=== PATIENT | male | born 1970 | race Caucasian/White ===

== ENCOUNTER 2016-12-24 21:44 | Inpatient (IN) | payer BC ==
[2016-12-24] MEDS ORDERED: SODIUM CHLORIDE 0.9% 1,000 ML IV STA (22:40)
--- NOTE | 2016-12-24 22:45 | ED ---
General Adult HPI - General Chief complaint: Arrhythmia/Palpitations Stated complaint: racing heart/shaky Time Seen by Provider: 12/24/16 22:33 Source: patient, RN notes reviewed Mode of arrival: ambulatory Limitations: no limitations - History of Present Illness Initial comments: 46-year-old male presents to the emergency department with a chief complaint of heart racing. Patient states he felt like his heart was racing today. Patient states he was just beating so fast for a couple minutes at home and then afterwards it stopping the past he just felt terribly drained. Patient states he has had history of TIA in the past and he states that in the last month or so he's had on-and-off changes in vision on and off episodes where his speech is abnormal that he has not had those in about a week or so. Patient states that this time he just does not feel anything abnormal that he was concerned due to his symptoms without that he should be seen.Patient denies any recent fever, chills, shortness of breath, chest pain, back pain, abdominal pain, nausea vomiting, numbness or tingling, dysuria or hematuria, constipation or diarrhea, headaches or visual changes, or any other current symptoms. - Related Data Home Medications Medication Instructions Recorded Confirmed No Known Home Medications [No 12/24/16 12/24/16 Known Home Medications] Allergies Allergy/AdvReac Type Severity Reaction Status Date / Time ceftriaxone [From Rocephin] Allergy Rash/Hives Verified 12/24/16 23:08 Review of Systems ROS Statement: Those systems with pertinent positive or pertinent negative responses have been documented in the HPI. ROS Other: All systems not noted in ROS Statement are negative. Past Medical History Past Medical History: CVA/TIA History of Any Multi-Drug Resistant Organisms: MRSA MDRO Source:: right leg Past Surgical History: Adenoidectomy, Orthopedic Surgery Additional Past Surgical History / Comment(s): Right ankle Past Psychological History: No Psychological Hx Reported Smoking Status: Current every day smoker Past Alcohol Use History: Occasional Past Drug Use History: None Reported General Exam Limitations: no limitations General appearance: alert, in no apparent distress Head exam: Present: atraumatic, normocephalic, normal inspection Eye exam: Present: normal appearance, PERRL, EOMI. Absent: scleral icterus, conjunctival injection, periorbital swelling ENT exam: Present: normal exam, mucous membranes moist Neck exam: Present: normal inspection. Absent: tenderness, meningismus, lymphadenopathy Respiratory exam: Present: normal lung sounds bilaterally. Absent: respiratory distress, wheezes, rales, rhonchi, stridor Cardiovascular Exam: Present: regular rate, normal rhythm, normal heart sounds. Absent: systolic murmur, diastolic murmur, rubs, gallop, clicks Extremities exam: Present: normal inspection, full ROM, normal capillary refill. Absent: tenderness, pedal edema, joint swelling, calf tenderness Back exam: Present: normal inspection Neurological exam: Present: alert, oriented X3, CN II-XII intact, reflexes normal. Absent: motor sensory deficit Psychiatric exam: Present: normal affect, normal mood Skin exam: Present: warm, dry, intact, normal color. Absent: rash Course Vital Signs 12/24/16 12/24/16 12/24/16 21:52 22:41 23:47 Temperature 97.9 F 97.3 F L Pulse Rate 90 69 66 Respiratory 18 16 18 Rate Blood Pressure 140/88 133/86 123/77 O2 Sat by Pulse 98 97 97 Oximetry EKG Findings - EKG Comments: EKG Findings:: normal sinus rhythm 73 bpm, normal axis, no atopy, no S-T depressions or elevations, Medical Decision Making - Medical Decision Making 46-year-old male presents to the emergency department the chief complaint of racing heart earlier today. This time patient's EKG shows normal sinus rhythm. Patient also admits to episodes of slurred speech abnormal speech on and off over the last month or so. This time lab work is reviewed. There is a mildly elevated troponin patient does have this history of these palpitations at home. I assembled the patient for cardiac rule out. Will be started heparin given aspirin. Patient is in agreement plan all questions have been answered. - Lab Data Result diagrams: 12/24/16 22:52 12/24/16 22:52 Lab Results 12/24/16 12/24/16 12/24/16 Range/Units 22:52 22:52 22:52 WBC 8.1 (3.8-10.6) k/uL RBC 4.53 (4.30-5.90) m/uL Hgb 15.1 (13.0-17.5) gm/dL Hct 44.0 (39.0-53.0) % MCV 97.2 (80.0-100.0) fL MCH 33.4 (25.0-35.0) pg MCHC 34.3 (31.0-37.0) g/dL RDW 13.3 (11.5-15.5) % Plt Count 235 (150-450) k/uL Neutrophils % 57 % Lymphocytes % 34 % Monocytes % 5 % Eosinophils % 3 % Basophils % 0 % Neutrophils # 4.6 (1.3-7.7) k/uL Lymphocytes # 2.8 (1.0-4.8) k/uL Monocytes # 0.4 (0-1.0) k/uL Eosinophils # 0.2 (0-0.7) k/uL Basophils # 0.0 (0-0.2) k/uL PT (9.0-12.0) sec INR (<1.2) APTT (22.0-30.0) sec Sodium 141 (137-145) mmol/L Potassium 4.0 (3.5-5.1) mmol/L Chloride 108 H (98-107) mmol/L Carbon Dioxide 21 L (22-30) mmol/L Anion Gap 12 mmol/L BUN 15 (9-20) mg/dL Creatinine 1.00 (0.66-1.25) mg/dL Est GFR (MDRD) Af Amer >60 (>60 ml/min/1.73 sqM) Est GFR (MDRD) Non-Af >60 (>60 ml/min/1.73 sqM) Glucose 93 (74-99) mg/dL Calcium 9.3 (8.4-10.2) mg/dL Magnesium 2.2 (1.6-2.3) mg/dL Total Bilirubin 0.4 (0.2-1.3) mg/dL AST 27 (17-59) U/L ALT 42 (21-72) U/L Alkaline Phosphatase 72 (38-126) U/L Total Creatine Kinase 173 H (55-170) U/L CK-MB (CK-2) 0.7 (0.0-2.4) ng/mL CK-MB (CK-2) Rel Index 0.4 Troponin I 0.083 H* (0.000-0.034) ng/mL Total Protein 7.2 (6.3-8.2) g/dL Albumin 4.5 (3.5-5.0) g/dL Urine Color Urine Appearance (Clear) Urine pH (5.0-8.0) Ur Specific Lam[place] (1.001-1.035) Urine Protein (Negative) Urine Glucose (UA) (Negative) Urine Ketones (Negative) Urine Blood (Negative) Urine Nitrite (Negative) Urine Bilirubin (Negative) Urine Urobilinogen (<2.0) mg/dL Ur Leukocyte Esterase (Negative) 12/24/16 12/24/16 Range/Units 22:52 22:52 WBC (3.8-10.6) k/uL RBC (4.30-5.90) m/uL Hgb (13.0-17.5) gm/dL Hct (39.0-53.0) % MCV (80.0-100.0) fL MCH (25.0-35.0) pg MCHC (31.0-37.0) g/dL RDW (11.5-15.5) % Plt Count (150-450) k/uL Neutrophils % % Lymphocytes % % Monocytes % % Eosinophils % % Basophils % % Neutrophils # (1.3-7.7) k/uL Lymphocytes # (1.0-4.8) k/uL Monocytes # (0-1.0) k/uL Eosinophils # (0-0.7) k/uL Basophils # (0-0.2) k/uL PT 9.5 (9.0-12.0) sec INR 0.9 (<1.2) APTT 23.7 (22.0-30.0) sec Sodium (137-145) mmol/L Potassium (3.5-5.1) mmol/L Chloride (98-107) mmol/L Carbon Dioxide (22-30) mmol/L Anion Gap mmol/L BUN (9-20) mg/dL Creatinine (0.66-1.25) mg/dL Est GFR (MDRD) Af Amer (>60 ml/min/1.73 sqM) Est GFR (MDRD) Non-Af (>60 ml/min/1.73 sqM) Glucose (74-99) mg/dL Calcium (8.4-10.2) mg/dL Magnesium (1.6-2.3) mg/dL Total Bilirubin (0.2-1.3) mg/dL AST (17-59) U/L ALT (21-72) U/L Alkaline Phosphatase (38-126) U/L Total Creatine Kinase (55-170) U/L CK-MB (CK-2) (0.0-2.4) ng/mL CK-MB (CK-2) Rel Index Troponin I (0.000-0.034) ng/mL Total Protein (6.3-8.2) g/dL Albumin (3.5-5.0) g/dL Urine Color Light Yellow Urine Appearance Clear (Clear) Urine pH 5.5 (5.0-8.0) Ur Specific [place] 1.010 (1.001-1.035) Urine Protein Negative (Negative) Urine Glucose (UA) Negative (Negative) Urine Ketones Negative (Negative) Urine Blood Negative (Negative) Urine Nitrite Negative (Negative) Urine Bilirubin Negative (Negative) Urine Urobilinogen <2.0 (<2.0) mg/dL Ur Leukocyte Esterase Negative (Negative) Disposition Clinical Impression: Heart palpitations, Unstable angina Disposition: ADMITTED IP TO THIS [facility] Condition: Stable Referrals: None,Stated [Primary Care Provider] - 1-2 days Time of Disposition: 00:12 Decision Date: 12/25/16 Decision Time: 00:12
[2016-12-24 23:05] LABS: Appearance,Urine Clear (Clear); Basophils % (A) 0 %; Bilirubin,Urine Negative (Negative); CH 34.2; CHCM 35.3; Eosinophils # (A) 0.2 k/uL (0-0.7); Eosinophils % (A) 3 %; Glucose,Urine (UA) Negative (Negative); HDW 2.22; HGB 15.1 gm/dL (13.0-17.5); Ketones,Urine Negative (Negative); Leukocyte Esterase,Urine Negative (Negative); Luc # (Auto) 0.08; Luc % (Auto) 1; Lymphocytes # (A) 2.8 k/uL (1.0-4.8); Lymphocytes % (A) 34 %; MCH 33.4 pg (25.0-35.0); MCHC 34.3 g/dL (31.0-37.0); MCV 97.2 fL (80.0-100.0); Mean Platelet Volume 6.6; Monocytes # (A) 0.4 k/uL (0-1.0); Monocytes % (A) 5 %; Neutrophils # (A) 4.6 k/uL (1.3-7.7); Neutrophils % (A) 57 %; Nitrite,Urine Negative (Negative); PH, Urine 5.5 (5.0-8.0); Protein,Urine Negative (Negative); RBC 4.53 m/uL (4.30-5.90); RDW 13.3 % (11.5-15.5); UA Billing (MACRO vs. MICRO) CHEM; Urobilinogen,Urine <2.0 mg/dL (<2.0); WBC 8.1 k/uL (3.8-10.6); WBC (Perox) 7.87
[2016-12-24 23:13] LABS: ALT 42 U/L (21-72); AST 27 U/L (17-59); Alkaline Phosphatase 72 U/L (38-126); Anion Gap 12 mmol/L; Blood Urea Nitrogen 15 mg/dL (9-20); Calcium 9.3 mg/dL (8.4-10.2); Carbon Dioxide 21 mmol/L (22-30); Chloride 108 mmol/L (98-107); Glucose 93 mg/dL (74-99); Magnesium 2.2 mg/dL (1.6-2.3); Non-African American GFR(MDRD) >60 (>60 ml/min/1.73 sqM); Sodium 141 mmol/L (137-145); Total Bilirubin 0.4 mg/dL (0.2-1.3); Total Protein 7.2 g/dL (6.3-8.2)
[2016-12-24 23:15] LABS: INR 0.9 (<1.2); Partial Thromboplastin Time 23.7 sec (22.0-30.0); Prothrombin Time 9.5 sec (9.0-12.0)
[2016-12-24 23:40] LABS: Creatine Kinase MB 0.7 ng/mL (0.0-2.4)
--- NOTE | 2016-12-24 23:41 | XR ---
EXAM: XR Chest, 2 Views CLINICAL HISTORY: Reason: Chest Pain TECHNIQUE: Frontal and lateral views of the chest. COMPARISON: No relevant prior studies available. FINDINGS: Lungs: Mild perihilar prominence. No consolidation. Pleural space: Unremarkable. No pneumothorax. Heart: Unremarkable. Mediastinum: Unremarkable. Bones/joints: Unremarkable. IMPRESSION: No acute cardiopulmonary disease.
[2016-12-24 23:44] LABS: Troponin I 0.083 ng/mL (0.000-0.034)
--- NOTE | 2016-12-24 23:51 | CT ---
EXAM: CT Head Without Intravenous Contrast CLINICAL HISTORY: Reason: Pain TECHNIQUE: Axial computed tomography images of the head/brain without intravenous contrast. CTDI is 57.4 mGy and DLP is 1029.9 mGy-cm. This CT exam was performed using one or more of the following dose reduction techniques: automated exposure control, adjustment of the mA and/or kV according to patient size, and/or use of iterative reconstruction technique. COMPARISON: No relevant prior studies available. FINDINGS: Brain: No hemorrhage. No acute cortical infarct. No mass effect or midline shift. Ventricles: Unremarkable. Bones/joints: No acute fracture. Soft tissues: Unremarkable. Sinuses: Unremarkable as visualized. Mastoid air cells: Unremarkable as visualized. IMPRESSION: No acute intracranial process.
[2016-12-24] MEDS ORDERED: ASPIRIN 81 MG CHEW PO STA (23:54)
[2016-12-25] MEDS ORDERED: ONDANSETRON 4 MG/2 ML VIAL IVP PRN (00:12)
[2016-12-25] MEDS ORDERED: NALOXONE 0.4 MG/ML 1 ML VIAL IV PRN (00:12)
[2016-12-25] MEDS ORDERED: HEPARIN SODIUM,PORCINE 5,000 UNIT/ML 1 ML VIAL IV PRN (00:14)
[2016-12-25] MEDS ORDERED: HEPARIN SODIUM,PORCINE 5,000 UNIT/ML 1 ML VIAL IV ONE (00:14)
[2016-12-25] MEDS: SODIUM CHLORIDE 0.9% 1,000 ML IV SCH ×2 (00:27→14:36)
[2016-12-25] MEDS: HEPARIN SODIUM,PORCINE/D5W PMX 25,000 UNIT in DEXTROSE/WATER 1 500ML.BAG IV SCH (00:28)
[2016-12-25 00:51] LABS: Cholesterol 186 mg/dL (<200); HDL Cholesterol 29 mg/dL (40-60)
[2016-12-25 02:09] VITALS: BMI 26.8
[2016-12-25 06:35] LABS: Creatine Kinase MB 0.5 ng/mL (0.0-2.4)
[2016-12-25 06:36] LABS: Troponin I 0.088 ng/mL (0.000-0.034)
--- NOTE | 2016-12-25 09:41 | P.CRDCN ---
History of Present Illness Consult date: 12/25/16 Requesting physician: Ene Chauhan Reason for Consult (text): Palpitations Chief complaint: Palpitations History of present illness: This is a pleasant 46-year-old gentleman who works at the [employer], he has no prior documented history of hypertension, no diabetes, no hyperlipidemia , he does state that he has high triglycerides, he does smoke cigarettes, rarely drinks alcohol, he does drink energy drinks on a daily basis, and has history of prior TIA. He presents to the hospital with symptoms of feeling his heart racing fast, he states that it lasted for a couple of minutes, once it stopped to normal he states that he felt drained completely exhausted. Patient also states that for the past month or so he has been having recurrent episodes of visual disturbance as well as difficulty speaking, at times slurring of speech at times more expressive aphasia. Overall the patient presented to the hospital because he just did not feel well after this episode of heart racing fast. EKG performed on presentation here showed a normal sinus rhythm with nonspecific ST-T wave changes. Repeat EKG shows normal sinus rhythm with nonspecific ST-T wave changes. Blood pressure on arrival here 140/80 with a heart rate in the 90s, 98% on room air. CBC normal. Potassium 4.0, BUN 15, creatinine 1.0. Initial troponin on presentation here 0.08, 0.08. CAT scan of the brain was performed which did not reveal any acute intracranial process. Chest x-ray did not reveal any acute cardiopulmonary disease. At the time of my examination this morning, patient feels exhausted and drained, denies any palpitations, no chest discomfort, no shortness of breath. No symptoms of blurring of vision or difficulty speaking. He is currently on an IV heparin drip. Past Medical History Past Medical History: CVA/TIA History of Any Multi-Drug Resistant Organisms: MRSA Date of last positivie culture/infection: unknown MDRO Source:: right leg Past Surgical History: Adenoidectomy, Orthopedic Surgery Additional Past Surgical History / Comment(s): Right ankle Past Psychological History: No Psychological Hx Reported Smoking Status: Current every day smoker Past Alcohol Use History: Occasional Past Drug Use History: None Reported - Past Family History Mother History Unknown: Yes Medications and Allergies Home Medications Medication Instructions Recorded Confirmed Type No Known Home Medications [No 12/24/16 12/24/16 History Known Home Medications] Allergies Allergy/AdvReac Type Severity Reaction Status Date / Time ceftriaxone [From Rocephin] Allergy Rash/Hives Verified 12/24/16 23:08 Physical Exam Vitals: Vital Signs Temp Pulse Pulse Resp BP BP Pulse Ox 12/25/16 04:00 97.2 F L 67 16 100/59 100 12/25/16 01:58 96.7 F L 75 16 113/72 97 12/25/16 00:17 60 18 131/87 96 12/24/16 23:47 97.3 F L 66 18 123/77 97 12/24/16 22:41 69 16 133/86 97 12/24/16 21:52 97.9 F 90 18 140/88 98 Intake and Output 12/24/16 12/25/16 12/25/16 22:59 06:59 14:59 Intake Total 800 Balance 800 Intake: IV 800 Heparin Sodium,Porcine/ 160 D5w Pmx 25,000 unit In Dextrose/Water 1 500ml. bag @ 9.8 UNITS/KG/HR 20 mls/hr IV .Q24H IRAIDA Rx#: [id number] Sodium Chloride 0.9% 1, 640 000 ml @ 80 mls/hr IV . [id number] IRAIDA Rx#:[id number] Other: Voiding Method Toilet # Voids 1 Weight 102.058 kg 102.6 kg PHYSICAL EXAMINATION: HEENT: Head is atraumatic, normocephalic. Pupils equal, round. Neck is supple. There is no elevated jugular venous pressure. HEART EXAMINATION: Heart S1, S2 normal. No murmur or gallop heard. CHEST EXAMINATION: Lungs are clear to auscultation and precussion. No chest wall tenderness is noted on palpation or with deep breathing. ABDOMEN: Soft, nontender. Bowel sounds are heard. No organomegaly noted. EXTREMITIES: 2+ peripheral pulses with no evidence of peripheral edema and no calf tenderness noted. NEUROLOGIC patient is awake, alert and oriented -3. . Results 12/24/16 22:52 12/24/16 22:52 Cardiac Enzymes 12/24/16 12/24/16 12/25/16 Range/Units 22:52 22:52 05:20 AST 27 (17-59) U/L CK-MB (CK-2) 0.7 0.5 (0.0-2.4) ng/mL Troponin I 0.083 H* 0.088 H* (0.000-0.034) ng/mL Coagulation 12/24/16 12/25/16 Range/Units 22:52 05:20 PT 9.5 (9.0-12.0) sec APTT 23.7 31.8 H (22.0-30.0) sec Lipids 12/24/16 Range/Units 22:52 Triglycerides 410 H (<150) mg/dL Cholesterol 186 (<200) mg/dL HDL Cholesterol 29 L (40-60) mg/dL CBC 12/24/16 Range/Units 22:52 WBC 8.1 (3.8-10.6) k/uL RBC 4.53 (4.30-5.90) m/uL Hgb 15.1 (13.0-17.5) gm/dL Hct 44.0 (39.0-53.0) % Plt Count 235 (150-450) k/uL Comprehensive Metabolic Panel 12/24/16 Range/Units 22:52 Sodium 141 (137-145) mmol/L Potassium 4.0 (3.5-5.1) mmol/L Chloride 108 H (98-107) mmol/L Carbon Dioxide 21 L (22-30) mmol/L BUN 15 (9-20) mg/dL Creatinine 1.00 (0.66-1.25) mg/dL Glucose 93 (74-99) mg/dL Calcium 9.3 (8.4-10.2) mg/dL AST 27 (17-59) U/L ALT 42 (21-72) U/L Alkaline Phosphatase 72 (38-126) U/L Total Protein 7.2 (6.3-8.2) g/dL Albumin 4.5 (3.5-5.0) g/dL Current Medications Generic Name Dose Route Start Last Admin Trade Name Freq PRN Reason Stop Dose Admin Aspirin 325 mg 12/26/16 09:00 Aspirin PO DAILY IRAIDA Heparin Sodium (Porcine) 0 unit 12/25/16 00:14 Heparin IV PER PROTOCOL PRN Low PTT Protocol Heparin Sodium/Dextrose 25,000 500 mls @ 20 mls/hr 12/25/16 00:15 12/25/16 00 :28 unit/ IV Solution IV 9.79 units/kg/hr .Q24H IRAIDA 20 mls/hr Protocol Administration 9.8 UNITS/KG/HR Sodium Chloride 1,000 mls @ 80 mls/hr 12/25/16 00:15 12/25/16 00:27 Saline 0.9% IV 80 mls/hr .[id number] IRAIDA Administration Naloxone HCl 0.2 mg 12/25/16 00:12 Narcan IV Q2M PRN Opioid Reversal Ondansetron HCl 4 mg 12/25/16 00:12 Zofran IVP Q8HR PRN Nausea And Vomiting Intake and Output 12/24/16 12/25/16 12/25/16 22:59 06:59 14:59 Intake Total 800 Balance 800 Intake: IV 800 Heparin Sodium,Porcine/ 160 D5w Pmx 25,000 unit In Dextrose/Water 1 500ml. bag @ 9.8 UNITS/KG/HR 20 mls/hr IV .Q24H IRAIDA Rx#: [id number] Sodium Chloride 0.9% 1, 640 000 ml @ 80 mls/hr IV . [id number] IRAIDA Rx#:[id number] Other: Voiding Method Toilet # Voids 1 Weight 102.058 kg 102.6 kg 12/24/16 22:52 12/24/16 22:52 EKG Interpretations (text) EKG shows a normal sinus rhythm with nonspecific ST-T wave changes. Assessment and Plan Plan: Assessment and plan #1 symptoms of palpitations and heart racing. Associated symptoms of exhaustion. Troponin 0.08, 0.08. EKG shows normal sinus rhythm with nonspecific ST-T wave changes no arrhythmias documented. #2 history of TIA, patient has been also experiencing recent symptoms of expressive aphasia, slurring of speech and visual disturbance. #3 nicotine dependence #4 use of energy drinks #5 high triglycerides Plan We will obtain an echocardiogram with Doppler study. We will also obtain a third troponin, and d-dimer level. Continue IV heparin at this time. Obtain fasting lipid profile. Other recommendations to follow. DNP note has been reviewed, I agree with a documented findings and plan of care. Patient was seen and examined.
[2016-12-25 11:06] LABS: Creatine Kinase MB 0.5 ng/mL (0.0-2.4)
[2016-12-25] MEDS ORDERED: NITROGLYCERIN SL TABS 0.4 MG TAB SUBLINGUAL PRN (11:07)
[2016-12-25] MEDS ORDERED: SODIUM CHLORIDE 0.9% 1,000 ML in EMPTY BAG 1 BAG IV ONE (11:07)
[2016-12-25] MEDS ORDERED: ATORVASTATIN 80 MG TAB PO STA (11:07)
[2016-12-25] MEDS ORDERED: ALPRAZolam 0.5 MG TAB PO PRN (11:07)
[2016-12-25] MEDS ORDERED: ASPIRIN 325 MG TAB PO STA (11:07)
[2016-12-25] MEDS ORDERED: ALPRAZolam 0.25 MG TAB PO PRN (11:07)
[2016-12-25 11:09] LABS: Troponin I 0.082 ng/mL (0.000-0.034)
[2016-12-25] MEDS: METOPROLOL TARTRATE 25 MG TAB PO SCH ×2 (11:25→20:03)
[2016-12-25] MEDS ORDERED: IV FLUID CONTINUATION 1,000 ML IV ONE (13:28)
[2016-12-25] MEDS ORDERED: LIDOCAINE 2% INJ 20 MG/ML (20 ML MDV) ONE (13:40)
[2016-12-25] MEDS ORDERED: VERAPAMIL 2.5 MG/ML 2 ML AMP ONE (13:40)
[2016-12-25] MEDS ORDERED: MIDAZOLAM 2 MG/2 ML VIAL ONE (13:41)
[2016-12-25] MEDS ORDERED: MIDAZOLAM 2 MG/2 ML VIAL IV ONE (13:46)
[2016-12-25] MEDS ORDERED: LIDOCAINE 2% INJ 20 MG/ML SQ ONE (13:48)
[2016-12-25] MEDS: VERAPAMIL SYRINGE (5 MG/10 ML) INTRAARTER ONE ×2 (13:49→14:03)
[2016-12-25] MEDS ORDERED: HEPARIN SODIUM 1,000 UN/ML (10ML VL) ONE (13:49)
[2016-12-25] MEDS ORDERED: HYDROmorphone 2 MG/ML 1 ML SYRINGE ONE (13:55)
[2016-12-25] MEDS ORDERED: HYDROmorphone 2 MG/ML 1 ML SYRINGE IV ONE ×2 (13:56)
[2016-12-25] MEDS ORDERED: IOHEXOL 350 MG/ML 125ML BOTTLE INJ ONE (14:02)
[2016-12-25] MEDS ORDERED: RX INFO: IV CONTRAST WAS GIVEN 1 EACH MISC MISCELLANE PRN (14:11)
[2016-12-25] MEDS ORDERED: SODIUM CHLORIDE 0.9% 1,000 ML IV SCH (14:15)
[2016-12-25] MEDS ORDERED: ACETAMINOPHEN TAB 325 MG TAB PO PRN (15:35)
[2016-12-25] MEDS ORDERED: ASPIRIN-ACET-CAFF 250-250-65MG 1 EACH TAB PO PRN (16:47)
--- NOTE | 2016-12-25 19:41 | ECHOF ---
Referral Reason:abn trop MEASUREMENTS -------- HEIGHT: 195.6 cm WEIGHT: 102.5 kg BP: 100/59 RVIDd: 2.3 cm (< 3.3) IVSd: 0.9 cm (0.6 - 1.1) LVIDd: 5.4 cm (3.9 - 5.3) LVPWd: 1.0 cm (0.6 - 1.1) IVSs: 1.2 cm LVIDs: 4.0 cm LVPWs: 1.3 cm LAESV Index (A-L): 13.86 ml/m Ao Diam: 4.0 cm (2.0 - 3.7) AV Cusp: 2.3 cm (1.5 - 2.6) LA Diam: 2.8 cm (2.7 - 3.8) MV EXCURSION: 27.007 mm (> 18.000) MV EF SLOPE: 150 mm/s (70 - 150) EPSS: 0.2 cm MV E Blair: 0.86 m/s MV DecT: 198 ms MV A Blair: 0.58 m/s MV E/A Ratio: 1.48 RAP: 5.00 mmHg RVSP: 23.14 mmHg FINDINGS -------- Sinus rhythm. This was a technically adequate study. Overall left ventricular systolic function is low-normal with, an EF between 50 - 55 %. The right ventricle is normal in size and function. Normal LA size by volume 22+/-6 ml/m2. The right atrium is normal in size. The aortic valve is trileaflet, and appears structurally normal. No aortic stenosis or regurgitation. The mitral valve is normal. There is trace mitral regurgitation. No regurgitation noted There is no evidence of pulmonary hypertension. The right ventricular systolic pressure, as measured by Doppler, is 23.14mmHg. The pulmonic valve is normal. The aortic root size is normal. Normal inferior vena cava with normal inspiratory collapse consistent with estimated right atrial pressure of 5 mmHg. The pericardium is normal. There is no pericardial effusion. CONCLUSIONS -------- 1. Sinus rhythm. 2. The aortic root size is normal. 3. There is no pericardial effusion. 4. This was a technically adequate study. 5. Overall left ventricular systolic function is low-normal with, an EF between 50 - 55 %. 6. Normal LA size by volume 22+/-6 ml/m2. 7. The aortic valve is trileaflet, and appears structurally normal. No aortic stenosis or regurgitation. 8. There is trace mitral regurgitation. 9. No regurgitation noted 10. There is no evidence of pulmonary hypertension. 11. The right ventricular systolic pressure, as measured by Doppler, is 23.14mmHg. [employer]IV[employer] ENGINEER: Lb Tai RDCS
[2016-12-25 20:20] VITALS: RESP 16
[2016-12-26] MEDS: HEPARIN SODIUM,PORCINE/D5W PMX 25,000 UNIT in DEXTROSE/WATER 1 500ML.BAG IV SCH (05:16)
[2016-12-26 06:12] LABS: Basophils % (A) 1 %; HDW 2.22; Lymphocytes % (A) 27 %
[2016-12-26 06:19] LABS: CH 34.1; CHCM 34.1; Eosinophils # (A) 0.2 k/uL (0-0.7); Eosinophils % (A) 3 %; HCT 44.8 % (39.0-53.0); HGB 14.6 gm/dL (13.0-17.5); Luc % (Auto) 1; Lymphocytes # (A) 1.9 k/uL (1.0-4.8); MCH 32.7 pg (25.0-35.0); MCHC 32.6 g/dL (31.0-37.0); MCV 100.4 fL (80.0-100.0); Mean Platelet Volume 6.6; Monocytes # (A) 0.4 k/uL (0-1.0); Monocytes % (A) 6 %; Neutrophils # (A) 4.4 k/uL (1.3-7.7); Neutrophils % (A) 63 %; RBC 4.46 m/uL (4.30-5.90); RDW 13.1 % (11.5-15.5); WBC 7.1 k/uL (3.8-10.6); WBC (Perox) 7.35
[2016-12-26 06:22] LABS: INR 0.9 (<1.2); Prothrombin Time 9.6 sec (9.0-12.0)
[2016-12-26 06:24] LABS: Anion Gap 8 mmol/L; Blood Urea Nitrogen 10 mg/dL (9-20); Carbon Dioxide 26 mmol/L (22-30); Chloride 109 mmol/L (98-107); Glucose 111 mg/dL (74-99); Non-African American GFR(MDRD) >60 (>60 ml/min/1.73 sqM); Potassium 4.5 mmol/L (3.5-5.1); Sodium 143 mmol/L (137-145)
[2016-12-26] MEDS: SODIUM CHLORIDE 0.9% 1,000 ML IV SCH (08:43)
[2016-12-26] MEDS: METOPROLOL TARTRATE 25 MG TAB PO SCH (08:44)
[2016-12-26] MEDS ORDERED: ASPIRIN 325 MG TAB PO SCH (09:00)
[2016-12-26 11:54] VITALS: BP 130/80; PULSE 70; TEMP 98.6
[2016-12-26] MEDS ORDERED: ASPIRIN 81 MG CHEW PO SCH (12:14)
--- NOTE | 2016-12-26 13:25 | HP ---
DATE OF SERVICE: 12/25/2016 CHIEF COMPLAINTS: Palpitations. HISTORY OF PRESENT ILLNESS: This 46-year-old gentleman with past medical history of CVA, TIA, history of MRSA, history of adenoidectomy being followed by no primary care physician in the outpatient setting was admitted with complaints of palpitations. The patient felt like totally drained and because of multiple complications in the past, the patient came to [facility] and admitted for further evaluation and treatment. The evaluation in the ER showed troponin elevated at 0.083 and the triglycerides were also elevated and the CT scan of the brain was also noted. The CT scan of the brain showed no acute abnormalities. Evaluation from Cardiology is in progress. There is no history of fever, rigors. No history of headache, loss of consciousness or seizures. PAST MEDICAL HISTORY: History of CVA, TIA, history of MRSA, history of adenoidectomy. Medications prior to admission include home medications: None. ALLERGIES: ROCEPHIN. FAMILY HISTORY: No history of heart disease or strokes in the family. SOCIAL HISTORY: History of smoking, no history of alcohol intake. REVIEW OF SYSTEMS: ENT: No diminished hearing or vision. CARDIOVASCULAR: As mentioned earlier. RESPIRATORY: As mentioned earlier. GI: No nausea. : No dysuria. NERVOUS SYSTEM: No numbness or weakness. ALLERGY/IMMUNOLOGY: No asthma or hayfever. MUSCULOSKELETAL: As mentioned earlier. HEMATOLOGY/ONCOLOGY: No history of anemia. ENDOCRINE: No history of diabetes or hypothyroidism. CONSTITUTIONAL: As mentioned earlier. DERMATOLOGY: Negative. RHEUMATOLOGY: Negative. PSYCHIATRY: As mentioned earlier. PHYSICAL EXAMINATION: The patient is alert and oriented x3. Pulse is 67, blood pressure 199/82, respirations 18, temperature 97.6, pulse ox 94% on room air. HEENT: Conjunctivae normal. NECK: No jugular venous distention. CARDIOVASCULAR: S1, S2. RESPIRATORY: Breath sounds diminished at the bases. No rhonchi, no crackles. ABDOMEN: Soft, nontender, no mass palpable. LEGS: No edema, no swelling. NERVOUS SYSTEM: Higher function as mentioned. Moves all four limbs. No focal motor sensory deficits. LYMPHATICS: No lymphadenopathy in the neck, axillae or groin. SKIN: No rash, ulcer or bleeding. LABS: CBC within normal limits. aPTT 31.8, CO2 is 21, troponin 0.083. Creatine kinase 173. Triglycerides 410. ASSESSMENT: 1. Palpitations and tiredness with troponin 0.088, rule out acute non-ST elevation myocardial infarction. 2. Hypertriglyceridemia. 3. History of cerebrovascular accident and transient ischemic attack. 4. History of MRSA. 5. History of DJD. RECOMMENDATIONS AND DISCUSSION: In this 46-year-old gentleman who presented with multiple complex medical issues, we well monitor the patient closely. Continue the current medications. Continue symptomatic treatment. Continue with IV heparin. Cardiology consultation. Possible cardiac cath. Repeat labs will be ordered. Otherwise I would also recommend monitor closely. Possible cardiac cath. Further recommendations to follow. The prognosis is guarded because of multiple complex medical issues. I also recommend the patient to follow up with the primary physician closely after discharge also. The patient understands and agrees. [place]
--- NOTE | 2016-12-26 13:29 | P.PN ---
Subjective This is a pleasant 46-year-old gentleman who works at the [employer], he has no prior documented history of hypertension, no diabetes, no hyperlipidemia, he does state that he has high triglycerides, he does smoke cigarettes, rarely drinks alcohol, he does drink energy drinks on a daily basis , and has history of prior TIA. He presented to the hospital with symptoms of feeling his heart racing fast, he states that it lasted for a couple of minutes , once it stopped to normal he states that he felt drained completely exhausted. Patient also states that for the past month or so he has been having recurrent episodes of visual disturbance as well as difficulty speaking, at times slurring of speech at times more expressive aphasia. Overall the patient presented to the hospital because he just did not feel well after this episode of heart racing fast. EKG performed on presentation here showed a normal sinus rhythm with nonspecific ST-T wave changes. Repeat EKG shows normal sinus rhythm with nonspecific ST-T wave changes. She did have some nonsustained ventricular tachycardia. Blood pressure on arrival here 140/80 with a heart rate in the 90s, 98% on room air. CBC normal. Potassium 4.0, BUN 15, creatinine 1.0. Troonins were elvated at 0.083, 0.088 and 0.082. CAT scan of the brain was performed which did not reveal any acute intracranial process. Chest x-ray did not reveal any acute cardiopulmonary disease. 2-D echo with Doppler showed a low normal LV systolic function with an ejection fraction between 50-55%. Patient underwent cardiac catheterization done yesterday by Dr. Alan via right radial approach that showed normal coronary arteries. He has been started on aspirin 81 mg daily and metoprolol 25 mg by mouth twice a day. He is feeling well, denies complaints of chest discomfort, dizziness or lightheadedness. No shortness of breath or palpitations. He is anxious to be discharged home. Objective - Vital Signs Vital signs: Vital Signs Temp 98.6 F 12/26/16 11:53 Pulse 70 12/26/16 11:55 Resp 16 12/26/16 11:55 BP 130/80 12/26/16 11:53 Pulse Ox 95 12/26/16 11:53 Intake & Output 12/25/16 12/26/16 12/26/16 18:59 06:59 18:59 Intake Total 831.667 640 120 Balance 831.667 640 120 Weight 102.6 kg 102.1 kg Intake: IV 100 640 Sodium Chloride 0.9% 1, 640 000 ml @ 80 mls/hr IV . [id number] IRAIDA Rx#:[id number] Intake, IV Titration 181.667 Amount Heparin Sodium,Porcine/ 181.667 D5w Pmx 25,000 unit In Dextrose/Water 1 500ml. bag @ 9.8 UNITS/KG/HR 20 mls/hr IV .Q24H IRAIDA Rx#: [id number] Oral 550 120 Other: Voiding Method Toilet Toilet Toilet # Voids 2 1 - Exam PHYSICAL EXAMINATION: HEENT: Head is atraumatic, normocephalic. Pupils equal, round. Neck is supple. There is no elevated jugular venous pressure. HEART EXAMINATION: Heart sounds regular, S1 and S2 normal. No murmur or gallop heard. CHEST EXAMINATION: Lungs are clear to auscultation and precussion. No chest wall tenderness is noted on palpation or with deep breathing. ABDOMEN: Soft, nontender. Bowel sounds are heard. No organomegaly noted. EXTREMITIES: 2+ peripheral pulses with no evidence of peripheral edema and no calf tenderness noted. Right radial puncture site soft without ecchymosis or hematoma. NEUROLOGIC patient is awake, alert and oriented x3. . - Labs CBC & Chem 7: 12/26/16 05:52 12/26/16 05:52 Labs: Abnormal Lab Results - Last 24 Hours (Table) 12/26/16 12/26/16 Range/Units 05:52 05:52 MCV 100.4 H (80.0-100.0) fL Chloride 109 H (98-107) mmol/L Glucose 111 H (74-99) mg/dL Assessment and Plan Plan: Assessment and plan #1 symptoms of palpitations and heart racing. Associated symptoms of exhaustion. Troponin 0.08, 0.08. EKG shows normal sinus rhythm with nonspecific ST-T wave changes, catheterization showed normal coronaries. #2 history of TIA, patient has been also experiencing recent symptoms of expressive aphasia, slurring of speech and visual disturbance. #3 nicotine dependence #4 use of energy drinks #5 high triglycerides #6 nonsustained ventricular tachycardia with low normal LV systolic function with an EF of 50-55% Cardiology's perspective, patient is stable for discharge home. He'll be sent home on aspirin 81 mg by mouth daily and metoprolol 25 mg by mouth twice a day. He'll follow-up with Dr. Alan in the office in 2 weeks. PRODUCT MARKETING ANALYST note has been reviewed, I agree with a documented findings and plan of care. Patient was seen and examined.
--- NOTE | 2016-12-26 17:33 | CC ---
DATE OF SERVICE: 12/25/2016 PERFORMING PHYSICIAN: Duy Alan M.D., marker machine PROCEDURES PERFORMED: 1. Selective right and left coronary angiogram. 2. Left heart catheterization. 3. Left ventriculography. INDICATION: This is a pleasant 46-year-old gentleman who presented to the hospital with heart racing and fluttering . He was experiencing non-sustained VT. The cardiac enzymes came in to be abnormal. He is a smoker and also has dyslipidemia. APPROACH: Right radial artery. COMPLICATIONS: None. LEVEL OF SEDATION: Moderate, with a sedation length of 17 minutes. PROCEDURE DESCRIPTION: After obtaining informed consent, the patient was brought to the cardiac cath lab radiology technician. The right radial artery was cannulated using micropuncture technique. The micropuncture wire passed easily. Then I placed a 6 Bulgarian sheath. Subsequently I gave the patient 2 mg of Verapamil IA and 3000 units of heparin IV. After that I did selective right and left coronary angiogram using JR4 and JL3.5 catheters. Then I did left heart catheterization and LV gram using 5 Bulgarian pigtail catheter. The procedure was completed without any complication. SELECTIVE CORONARY ANGIOGRAM: 1. The right coronary artery is a large-caliber vessel. It is a dominant vessel. It is angiographically normal. 2. The left main is angiographically normal. It bifurcates into the left circumflex and left anterior descending artery. 3. The left circumflex is a large-caliber vessel. It is a non-dominant vessel. The proximal circumflex is angiographically normal. It gives rise to the first and second obtuse marginal branches. Both are angiographically normal. The mid circumflex is normal and gives rise to a large third OM branch which appeared to be angiographically normal. The circumflex continues after than in the AV groove. 4. The proximal LAD is angiographically normal. It gives rise to a large diagonal branch, which seems to be angiographically normal. The mid LAD and distal LAD are angiographically normal. HEMODYNAMICS: The left ventricular end-diastolic pressure was 16 mmHg, and no gradient was identified across the aortic valve. Left ventriculography was performed in CABALLERO projection using a power injection. The left ventricular systolic function is low normal with EF around 50% with normal wall motion. CONCLUSION: 1. Normal coronary angiogram. 2. Normal left ventricular end-diastolic pressure. 3. Low normal left ventricular systolic function. [facility]
--- NOTE | 2016-12-29 12:58 | DS ---
DATE OF SERVICE: 12/26/2016 FINAL DIAGNOSES: 1. Palpitations, possibly tachycardia. 2. Troponin 0.088 with normal coronary arteriogram. 3. Hypertriglyceridemia. 4. History of CVA/TIA. DISCHARGE DISPOSITION: The patient will be discharged in stable condition with guarded prognosis. HISTORY OF PRESENT ILLNESS: A 46-year-old gentleman with a past medical history of multiple medical problems, admitted with tachycardia and elevated troponin. Cardiac cath is normal. Cardiology saw the patient and recommended outpatient followup. A 2D echo was normal also. CAT scan of the brain was also normal. On exam, vitals are stable. CARDIOVASCULAR SYSTEM: S1, S2. ABDOMEN: Soft. NERVOUS SYSTEM: No focal deficits. I would recommend the patient to follow up closely with the primary physician as well as Cardiology for the evaluation of the above mentioned symptoms. DISCHARGE ADVICE: 1. Diet is cardiac. 2. Activity limited until followup. 3. Follow up with Dr. Wilner Guallpa in 2 to 3 days. 3. Follow up with Dr. Alan as advised. Medications are: 1. Ecotrin 81 mg p.o. daily. 2. Lopressor 25 mg p.o. b.i.d. Once again, the patient will be discharged in a stable condition with guarded prognosis. TATIANAD
== END 2016-12-26 14:56 | disposition home or self-care (01) | DRG 287 ==
LOC: EC 21:44 → 6SEL 12-25 00:12 → OBSVTOIN 12-25 15:04
PROVIDERS: ADMIT Hospitalist; ATTEND Hospitalist
PROC: B2111ZZ Fluoroscopy of Multiple Coronary Arteries using Low Osmolar Contrast (ICD-10-PCS; 2016-12-25)
PROC: B2151ZZ Fluoroscopy of Left Heart using Low Osmolar Contrast (ICD-10-PCS; 2016-12-25)
PROC: 4A023N7 Measurement of Cardiac Sampling and Pressure, Left Heart, Percutaneous Approach (ICD-10-PCS; principal; 2016-12-25 13:33)
DX: I47.2 Ventricular tachycardia (principal); R47.01 Aphasia; E78.1 Pure hyperglyceridemia; R74.8 Abnormal levels of other serum enzymes; E78.5 Hyperlipidemia, unspecified; M19.91 Primary osteoarthritis, unspecified site; F17.210 Nicotine dependence, cigarettes, uncomplicated; H53.9 Unspecified visual disturbance; Z86.14 Personal history of Methicillin resistant Staphylococcus aureus infection; Z86.73 Personal history of transient ischemic attack (TIA), and cerebral infarction without residual deficits; Z88.1 Allergy status to other antibiotic agents
CPT/HCPCS: 36415; 70450; 71020; 80048; 80053; 80061; 81003; 82550; 82553; 83735; 84443; 84484; 85025; 85379; 85610; 85730; 93005; 93306; 94760; 96361; 96376; 99285

== ENCOUNTER 2017-02-02 18:32 | Inpatient (IN) | payer BC ==
[2017-02-02] MEDS ORDERED: MORPHINE SULFATE 4 MG/ML SYRINGE IV STA (19:08)
[2017-02-02] MEDS ORDERED: NITROGLYCERIN OINT 1 INCH/GM PACKET TOPICAL STA (19:08)
[2017-02-02] MEDS ORDERED: ASPIRIN 81 MG PO STA (19:08)
--- NOTE | 2017-02-02 19:12 | ED ---
Chest Pain HPI - General Chief Complaint: Chest Pain Stated Complaint: chest pain Time Seen by Provider: 02/02/17 18:58 Source: patient Mode of arrival: wheelchair Limitations: no limitations - History of Present Illness Initial Comments: This 46-year-old white male presents with a complaint of some left-sided chest pain which he describes as a tightness. This is associated with some palpitations, shortness of breath, and lightheadedness. The pain seems to radiate into his left shoulder. He states that the pain is moderate in severity. He denies any leg pain or swelling or history of PE or DVT. He does relate a history approximately 8 years ago of having a TIA. He was just admitted to the hospital approximately one month ago and had a full cardiac workup which did include an echocardiogram and heart catheterization which did not show any significant degree of stenosis. He did not require any coronary intervention. He states that he has had a slight cough but no known fever but feels hot currently. No other complaints or modifying factors. - Related Data Home Medications Medication Instructions Recorded Confirmed Metoprolol Tartrate [Lopressor] 25 mg PO DAILY 02/02/17 02/02/17 Previous Rx's Medication Instructions Recorded Aspirin 81 mg PO DAILY 12/26/16 Allergies Allergy/AdvReac Type Severity Reaction Status Date / Time ceftriaxone [From Rocephin] Allergy Rash/Hives Verified 02/02/17 19:17 Review of Systems ROS Statement: Those systems with pertinent positive or pertinent negative responses have been documented in the HPI. ROS Other: All systems not noted in ROS Statement are negative. Past Medical History Past Medical History: Chest Pain / Angina, CVA/TIA History of Any Multi-Drug Resistant Organisms: MRSA Date of last positivie culture/infection: unknown MDRO Source:: right leg Past Surgical History: Adenoidectomy, Orthopedic Surgery Additional Past Surgical History / Comment(s): Right ankle Past Psychological History: No Psychological Hx Reported Smoking Status: Current every day smoker Past Alcohol Use History: Occasional Past Drug Use History: None Reported - Past Family History Mother History Unknown: Yes General Exam - General Exam Comments Initial Comments: GENERAL: The patient is well nourished and well hydrated. VITAL SIGNS: Heart rate, blood pressure, respiratory rate reviewed as recorded in nurse's notes. EYES: Pupils are round and reactive. Extraocular movements are intact. No conjunctival / lid redness or swelling. ENT: No external evidence of injury, swelling, or ecchymosis. Airway is patent. Throat is clear. NECK: Nontender. No swelling or evidence of injury. No subcutaneous emphysema. Trachea is midline. No thyroid mass. HEART: Regular rate and rhythm. Good peripheral pulses. LUNGS/CHEST: Breath sounds clear and equal bilaterally. No rales, rhonchi, or wheezes. No ecchymosis, subcutaneous emphysema, or tenderness. ABDOMEN: Abdomen soft without tenderness. No palpable masses or organomegaly. No peritoneal signs. No abdominal wall swelling or ecchymosis. EXTREMITIES: No extremity tenderness. Normal muscle tone and function. No thoracolumbar tenderness. NEUROLOGIC: Sensation is grossly intact. Cranial nerve exam reveals face is symmetrical, tongue is midline, speech is clear. SKIN: No abrasions or ecchymosis is noted. No induration or masses noted. PSYCHIATRIC: Alert and oriented. Appropriate behavior and judgment. Limitations: no limitations Course Vital Signs 02/02/17 02/02/17 18:39 19:12 Temperature 98.4 F 98.4 F Pulse Rate 91 81 Respiratory 18 18 Rate Blood Pressure 144/85 131/87 O2 Sat by Pulse 98 97 Oximetry Chest Pain MDM - MDM The patient was seen and examined. All diagnostics were reviewed. An IV is established she is placed on a court monitor. The EKG shows a normal sinus rhythm at a rate of 85. There is no acute ST-T wave changes identified. The [place] interval is 152, QRS duration is 94, and the QTc interval is 421. The old records are reviewed. The patient receives nitroglycerin paste but refuses the aspirin or morphine. It appears that he did have an extensive workup on last admission including a heart catheterization. His chest x-ray does not show any acute processes. His cardiac profile labs are all essentially within normal limits except for a slightly elevated troponin at 0.70. The exact cause of his current symptomatology is not definitively determined. The possibility of some coronary vasospasm is possible. Nevertheless, it is felt as though he would require admission to the hospital for further workup and treatment. He is agreeable. Case is discussed with Dr. Roldan and he is agreeable to admission. Disposition Clinical Impression: Chest pain, Heart palpitations, Dyspnea, Non-ST elevation (NSTEMI) myocardial infarction Disposition: ADMITTED IP TO THIS HOSP Condition: Fair Time of Disposition: 21:15 Decision Date: 02/02/17 Decision Time: 21:15
--- NOTE | 2017-02-02 19:38 | XR ---
EXAMINATION TYPE: XR chest 2V DATE OF EXAM: 02/02/2017 COMPARISON: December 24, 2016 HISTORY: Chest pain TECHNIQUE: Frontal and lateral views of the chest are obtained. FINDINGS: There is no focal air space opacity. No evidence for pneumothorax. No pleural effusion. The cardiac silhouette size is within normal limits. The osseous structures are grossly intact. IMPRESSION: 1. No acute cardiopulmonary process.
[2017-02-02 19:46] LABS: Basophils # (A) 0.1 k/uL (0-0.2); Basophils % (A) 1 %; CH 34.7; CHCM 35.7; Eosinophils # (A) 0.2 k/uL (0-0.7); Eosinophils % (A) 2 %; HCT 43.4 % (39.0-53.0); HDW 2.27; Luc # (Auto) 0.08; Luc % (Auto) 1; Lymphocytes # (A) 2.6 k/uL (1.0-4.8); Lymphocytes % (A) 28 %; MCH 33.6 pg (25.0-35.0); MCHC 34.5 g/dL (31.0-37.0); MCV 97.5 fL (80.0-100.0); Mean Platelet Volume 6.9; Monocytes # (A) 0.6 k/uL (0-1.0); Monocytes % (A) 6 %; Neutrophils # (A) 5.8 k/uL (1.3-7.7); Neutrophils % (A) 62 %; RBC 4.45 m/uL (4.30-5.90); RDW 13.5 % (11.5-15.5); WBC 9.2 k/uL (3.8-10.6); WBC (Perox) 8.68
[2017-02-02 19:53] LABS: ALT 28 U/L (21-72); AST 25 U/L (17-59); Alkaline Phosphatase 70 U/L (38-126); Anion Gap 11 mmol/L; Blood Urea Nitrogen 16 mg/dL (9-20); Calcium 9.3 mg/dL (8.4-10.2); Carbon Dioxide 24 mmol/L (22-30); Chloride 106 mmol/L (98-107); Glucose 114 mg/dL (74-99); Magnesium 1.9 mg/dL (1.6-2.3); Non-African American GFR(MDRD) >60 (>60 ml/min/1.73 sqM); Potassium 4.1 mmol/L (3.5-5.1); Sodium 141 mmol/L (137-145); Total Bilirubin 0.3 mg/dL (0.2-1.3)
[2017-02-02 20:13] LABS: Creatine Kinase MB 0.7 ng/mL (0.0-2.4); Troponin I 0.07 ng/mL (0.000-0.034)
[2017-02-02 20:21] LABS: INR 0.9 (<1.2); Partial Thromboplastin Time 23.3 sec (22.0-30.0); Prothrombin Time 9.7 sec (9.0-12.0)
[2017-02-02] MEDS ORDERED: HEPARIN SODIUM,PORCINE 5,000 UNIT/ML 1 ML VIAL IV ONE (21:16)
[2017-02-02] MEDS ORDERED: NITROGLYCERIN SL TABS 0.4 MG TAB SUBLINGUAL PRN (21:16)
[2017-02-02] MEDS: HEPARIN SODIUM,PORCINE/D5W PMX 25,000 UNIT in DEXTROSE/WATER 1 500ML.BAG IV SCH (21:39)
[2017-02-03] MEDS: NITROGLYCERIN OINT 1 INCH/GM PACKET TOPICAL SCH ×4 (00:02→17:00)
[2017-02-03 00:15] VITALS: BMI 26.4
[2017-02-03 01:43] LABS: Creatine Kinase MB 0.6 ng/mL (0.0-2.4)
[2017-02-03 01:49] LABS: Troponin I 0.06 ng/mL (0.000-0.034)
[2017-02-03] MEDS: ACETAMINOPHEN TAB 325 MG TAB PO PRN ×4 (03:38→21:13)
[2017-02-03] MEDS: HEPARIN SODIUM,PORCINE 5,000 UNIT/ML 1 ML VIAL IV PRN ×2 (06:01→14:41)
[2017-02-03 06:20] LABS: Mean Platelet Volume 6.4
[2017-02-03 06:50] LABS: Creatine Kinase MB 0.6 ng/mL (0.0-2.4)
[2017-02-03 06:51] LABS: Troponin I 0.07 ng/mL (0.000-0.034)
--- NOTE | 2017-02-03 08:54 | P.CRDCN ---
History of Present Illness Consult date: 02/03/17 Chief complaint: Heart racing and fluttering History of present illness: This is a pleasant 46-year-old gentleman with no significant past medical history who presented to the hospital complaining of intermittent episodes of heart racing and fluttering. The patient presented to the hospital in December 2016 with chest discomfort and at that point he was ruled in for acute non-ST any. In review of that he underwent a heart catheterization which showed normal coronaries. He underwent an echocardiogram which showed normal LV function. The patient was discharged from the hospital in stable medical condition and I saw him in the office as an outpatient where he was completely asymptomatic and he cut down on the caffeine intake and kept himself hydrated. He was in his usual state of health until the day before yesterday when he started experiencing intermittent episodes of heart racing and fluttering and felt very tired and fatigued afterwards. Also he developed mild chest discomfort as well as shortness of breath. He has been maintaining normal sinus mechanism during his hospitalization and no arrhythmia was noted. The cardiac enzymes were checked and came in to be slightly abnormal but it not consistent with acute IN. The TSH was checked last time and that was within normal limits. I recommended the patient to be seen by Dr. Acevedo and I do feel that the patient need to have an EP study. Past Medical History Past Medical History: Chest Pain / Angina, CVA/TIA Additional Past Medical History / Comment(s): TIA 2012/no residual History of Any Multi-Drug Resistant Organisms: MRSA Date of last positivie culture/infection: 2012 MDRO Source:: right leg Past Surgical History: Adenoidectomy, Orthopedic Surgery Additional Past Surgical History / Comment(s): Right ankle Past Anesthesia/Blood Transfusion Reactions: No Reported Reaction Past Psychological History: No Psychological Hx Reported Smoking Status: Current every day smoker Past Alcohol Use History: Occasional Past Drug Use History: None Reported - Past Family History Mother History Unknown: Yes Medications and Allergies Home Medications Medication Instructions Recorded Confirmed Type Aspirin 81 mg PO DAILY 12/26/16 02/02/17 Rx Metoprolol Tartrate [Lopressor] 25 mg PO DAILY 02/02/17 02/02/17 History Allergies Allergy/AdvReac Type Severity Reaction Status Date / Time ceftriaxone [From Rocephin] Allergy Rash/Hives Verified 02/02/17 19:17 Physical Exam Vitals: Vital Signs Temp Pulse Pulse Resp BP BP Pulse Ox 02/03/17 04:00 97.5 F L 68 18 112/64 94 L 02/03/17 02:53 97.9 F 82 16 135/77 98 02/02/17 22:24 64 18 107/61 97 02/02/17 22:03 97.9 F 82 18 135/77 98 02/02/17 21:43 97.5 F L 68 18 131/83 96 02/02/17 21:16 98 02/02/17 19:12 98.4 F 81 18 131/87 97 02/02/17 18:39 98.4 F 91 18 144/85 98 Intake and Output 02/02/17 02/03/17 02/03/17 22:59 06:59 14:59 Intake Total 200 307.58 Balance 200 307.58 Intake: IV 140 Heparin Sodium,Porcine/ 140 D5w Pmx 25,000 unit In Dextrose/Water 1 500ml. bag @ 10 UNITS/KG/HR 19. 95 mls/hr IV .Q24H IRAIDA Rx #:[id number] Amount of Fluid Infused ( 200 ml) Intake, IV Titration 167.58 Amount Heparin Sodium,Porcine/ 167.58 D5w Pmx 25,000 unit In Dextrose/Water 1 500ml. bag @ 10 UNITS/KG/HR 19. 95 mls/hr IV .Q24H IRAIDA Rx #:[id number] Other: Voiding Method Toilet # Voids 1 Weight 101 kg 101 kg - Constitutional General appearance: no acute distress - Respiratory Respiratory: bilateral: CTA - Cardiovascular Rhythm: regular Heart sounds: normal: S1, S2 Results 02/03/17 05:51 02/02/17 19:17 Cardiac Enzymes 02/02/17 02/02/17 02/03/17 Range/Units 19:17 19:17 00:51 AST 25 (17-59) U/L CK-MB (CK-2) 0.7 0.6 (0.0-2.4) ng/mL Troponin I 0.070 H* 0.060 H* (0.000-0.034) ng/mL 02/03/17 Range/Units 05:51 AST (17-59) U/L CK-MB (CK-2) 0.6 (0.0-2.4) ng/mL Troponin I 0.070 H* (0.000-0.034) ng/mL Coagulation 02/02/17 02/03/17 Range/Units : 03:34 PT 9.7 (9.0-12.0) sec APTT 23.3 25.8 (22.0-30.0) sec CBC 02/02/17 02/03/17 Range/Units : 05:51 WBC 9.2 (3.8-10.6) k/uL RBC 4.45 (4.30-5.90) m/uL Hgb 15.0 (13.0-17.5) gm/dL Hct 43.4 (39.0-53.0) % Plt Count 257 208 (150-450) k/uL Comprehensive Metabolic Panel 02/02/17 Range/Units : Sodium 141 (137-145) mmol/L Potassium 4.1 (3.5-5.1) mmol/L Chloride 106 (98-107) mmol/L Carbon Dioxide 24 (22-30) mmol/L BUN 16 (9-20) mg/dL Creatinine 1.10 (0.66-1.25) mg/dL Glucose 114 H (74-99) mg/dL Calcium 9.3 (8.4-10.2) mg/dL AST 25 (17-59) U/L ALT 28 (21-72) U/L Alkaline Phosphatase 70 (38-126) U/L Total Protein 7.0 (6.3-8.2) g/dL Albumin 4.2 (3.5-5.0) g/dL Current Medications Generic Name Dose Route Start Last Admin Trade Name Freq PRN Reason Stop Dose Admin Acetaminophen 650 mg 02/02/17 21:16 02/03/17 03:38 Tylenol Tab PO 650 mg Q4HR PRN Administration Pain Aspirin 325 mg 02/03/17 09:00 Aspirin PO DAILY [facility] Heparin Sodium (Porcine) 0 unit 02/02/17 21:16 02/03/17 06:01 Heparin IV 5,000 unit Q6HR PRN Administration Low PTT Protocol Heparin Sodium/Dextrose 25,000 500 mls @ 19.95 mls/hr 02/02/17 21:30 06:03 unit/ IV Solution IV 13 units/kg/hr .Q24H IRAIDA 25.94 mls/hr Protocol Titration 10 UNITS/KG/HR Metoprolol Tartrate 25 mg 02/03/17 09:00 Lopressor PO DAILY [facility] Nitroglycerin 1 inch 02/03/17 00:00 02/03/17 06:06 Nitro-Bid Oint TOPICAL Not Given Q6HR [facility] Nitroglycerin 0.4 mg 02/02/17 21:16 Nitrostat SUBLINGUAL Q5M PRN Chest Pain Intake and Output 02/02/17 02/03/17 02/03/17 22:59 06:59 14:59 Intake Total 200 307.58 Balance 200 307.58 Intake: IV 140 Heparin Sodium,Porcine/ 140 D5w Pmx 25,000 unit In Dextrose/Water 1 500ml. bag @ 10 UNITS/KG/HR 19. 95 mls/hr IV .Q24H IRAIDA Rx #:[id number] Amount of Fluid Infused ( 200 ml) Intake, IV Titration 167.58 Amount Heparin Sodium,Porcine/ 167.58 D5w Pmx 25,000 unit In Dextrose/Water 1 500ml. bag @ 10 UNITS/KG/HR 19. 95 mls/hr IV .Q24H [facility] Rx #:[id number] Other: Voiding Method Toilet # Voids 1 Weight 101 kg 101 kg 02/03/17 05:51 02/02/17 19:17 Assessment and Plan Plan: This is a pleasant 46-year-old gentleman with no significant past medical history who was admitted to the hospital was intermittent episodes of heart racing and fluttering. The cardiac enzymes were checked and came in to be slightly abnormal but not consistent with acute IN. I recommended the patient to undergo an EP study. An echo was performed in the past and came in to be unremarkable. Heart catheterization was performed and showed normal coronaries. And a TSH was checked also and came in to be within normal limits.
[2017-02-03] MEDS ORDERED: ASPIRIN 325 MG TAB PO SCH (09:00)
[2017-02-03] MEDS ORDERED: METOPROLOL TARTRATE 25 MG TAB PO SCH (09:00)
--- NOTE | 2017-02-03 12:08 | P.HPIM ---
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 Patient EKG Showed Normal Sinus Rhythm. Patient Has a Recent Hospitalization in December 2016 with Similar Symptoms and Dr. Alan Evaluated the Patient at That Time and Patient Has Similar Symptoms except for the Symptoms This Time Are Much Worse Patient Is Found to Have Minimally Elevated Troponin of 0.07 Patient Has a Cardiac Catheterization Which Showed Normal Coronaries during His Last Hospitalization Patient Was Discharged on an Event Monitor Which he Is Unable to Wear Because of His Discomfort and Work-Related Issues. Patient had a normal TSH. Patient was a valid by cardiology and minimally elevated troponins secondary to tachycardia and the cardiology is recommending electro- physiological evaluation. After discussing with cardiology looks like patient had nonsustained VT during his last hospitalization Review of Systems REVIEW OF SYSTEMS: CONSTITUTIONAL: No fever, no malaise, no fatigue. HEENT: No recent visual problems or hearing problems. Denied any sore throat. CARDIOVASCULAR: As mentioned in HPI PULMONARY: no cough, no hemoptysis. GASTROINTESTINAL: No diarrhea, no nausea, no vomiting, no abdominal pain. Normoactive bowel sounds. NEUROLOGICAL: No headaches, no weakness, no numbness. HEMATOLOGICAL: Denies any bleeding or petechiae. GENITOURINARY: Denies any burning micturition, frequency, or urgency. MUSCULOSKELETAL/RHEUMATOLOGICAL: Denies any joint pain, swelling, or any muscle pain. ENDOCRINE: Denies any polyuria or polydipsia. The rest of the 14-point review of systems is negative. Past Medical History Past Medical History: Chest Pain / Angina, CVA/TIA Additional Past Medical History / Comment(s): TIA 2012/no residual History of Any Multi-Drug Resistant Organisms: MRSA Date of last positivie culture/infection: 2012 MDRO Source:: right leg Past Surgical History: Adenoidectomy, Orthopedic Surgery Additional Past Surgical History / Comment(s): Right ankle Past Anesthesia/Blood Transfusion Reactions: No Reported Reaction Past Psychological History: No Psychological Hx Reported Smoking Status: Current every day smoker Past Alcohol Use History: Occasional Past Drug Use History: None Reported - Past Family History Mother History Unknown: Yes Medications and Allergies Home Medications Medication Instructions Recorded Confirmed Type Aspirin 81 mg PO DAILY 12/26/16 02/02/17 Rx Metoprolol Tartrate [Lopressor] 25 mg PO DAILY 02/02/17 02/02/17 History Allergies Allergy/AdvReac Type Severity Reaction Status Date / Time ceftriaxone [From Rocephin] Allergy Rash/Hives Verified 02/02/17 19:17 Physical Exam Vitals: Vital Signs Temp Pulse Pulse Resp BP BP Pulse Ox 02/03/17 11:37 97.1 F L 70 18 95/60 96 02/03/17 09:00 97.3 F L 70 18 106/73 94 L 02/03/17 04:00 97.5 F L 68 18 112/64 94 L 02/03/17 02:53 97.9 F 82 16 135/77 98 02/02/17 22:24 64 18 107/61 97 02/02/17 22:03 97.9 F 82 18 135/77 98 02/02/17 21:43 97.5 F L 68 18 131/83 96 02/02/17 21:16 98 02/02/17 19:12 98.4 F 81 18 131/87 97 02/02/17 18:39 98.4 F 91 18 144/85 98 Intake and Output 02/02/17 02/03/17 02/03/17 22:59 06:59 14:59 Intake Total 200 307.58 Balance 200 307.58 Intake: IV 140 Heparin Sodium,Porcine/ 140 D5w Pmx 25,000 unit In Dextrose/Water 1 500ml. bag @ 10 UNITS/KG/HR 19. 95 mls/hr IV .Q24H [facility] Rx #:[id number] Amount of Fluid Infused ( 200 ml) Intake, IV Titration 167.58 Amount Heparin Sodium,Porcine/ 167.58 D5w Pmx 25,000 unit In Dextrose/Water 1 500ml. bag @ 10 UNITS/KG/HR 19. 95 mls/hr IV .Q24H [facility] Rx #:[id number] Other: Voiding Method Toilet Toilet # Voids 1 Weight 101 kg 101 kg PHYSICAL EXAMINATION: GENERAL: The patient is alert and oriented x3, not in any acute distress. Well developed, well nourished. HEENT: Pupils are round and equally reacting to light. EOMI. No scleral icterus. No conjunctival pallor. Normocephalic, atraumatic. No pharyngeal erythema. No thyromegaly. CARDIOVASCULAR: S1 and S2 present. No murmurs, rubs, or gallops. PULMONARY: Chest is clear to auscultation, no wheezing or crackles. ABDOMEN: Soft, nontender, nondistended, normoactive bowel sounds. No palpable organomegaly. MUSCULOSKELETAL: No joint swelling or deformity. EXTREMITIES: No cyanosis, clubbing, or pedal edema. NEUROLOGICAL: Gross neurological examination did not reveal any focal deficits. SKIN: No rashes. Results CBC & Chem 7: 02/03/17 05:51 02/02/17 19:17 Labs: Abnormal Lab Results - Last 24 Hours (Table) 02/02/17 02/02/17 02/03/17 Range/Units : 19: 00:51 Glucose 114 H (74-99) mg/dL Total Creatine Kinase 188 H (55-170) U/L Troponin I 0.070 H* 0.060 H* (0.000-0.034) ng/mL 02/03/17 Range/Units 05:51 Glucose (74-99) mg/dL Total Creatine Kinase (55-170) U/L Troponin I 0.070 H* (0.000-0.034) ng/mL Thrombosis Risk Factor Assmnt - Choose All That Apply Any of the Below Risk Factors Present?: Yes Each Factor Represents 1 point: Age 41-60 years Other Risk Factors: No Other congenital or acquired thrombophilia - If yes, enter type in comment: No Thrombosis Risk Factor Assessment Total Risk Factor Score: 1 Thrombosis Risk Factor Assessment Level: Low Risk Assessment and Plan Plan: #1 palpitations, chest pressure and shortness of breath: All the symptoms resolved probably due to some can of cardiac arrhythmia patient will be a valid by Dr. Joshi from #2 mildly elevated cardiac enzymes that his troponin secondary to tachycardia and arrhythmia. Does not appear to have non-ST elevation microinfarction #3 nicotine abuse history: Counseling was provided.
--- NOTE | 2017-02-03 12:53 | ECHOF ---
Referral Reason:abn trop MEASUREMENTS -------- HEIGHT: 182.9 cm WEIGHT: 100.7 kg BP: 112/64 RVIDd: 3.2 cm (< 3.3) IVSd: 1.1 cm (0.6 - 1.1) LVIDd: 5.2 cm (3.9 - 5.3) LVPWd: 0.9 cm (0.6 - 1.1) IVSs: 1.3 cm LVIDs: 3.6 cm LVPWs: 1.4 cm LA Diam: 3.3 cm (2.7 - 3.8) Ao Diam: 3.2 cm (2.0 - 3.7) AV Cusp: 2.1 cm (1.5 - 2.6) LA Diam: 3.5 cm (2.7 - 3.8) MV EXCURSION: 27.419 mm (> 18.000) MV EF SLOPE: 128 mm/s (70 - 150) EPSS: 0.3 cm MV E Blair: 0.70 m/s MV DecT: 176 ms MV A Blair: 0.54 m/s MV E/A Ratio: 1.30 RAP: 5.00 mmHg RVSP: 27.27 mmHg FINDINGS -------- Sinus rhythm. This was a technically good study. The left ventricular size is normal. Left ventricular wall thickness is normal. Overall left ventricular systolic function is normal with, an EF between 55 - 60 %. Basal inferior LV wall motion is hypokinetic. The right ventricle is normal in size. Normal LA size by volume 22+/-6 ml/m2. The right atrial size is normal. The aortic valve is trileaflet, and appears structurally normal. No aortic stenosis or regurgitation. Mild mitral regurgitation is present. Mild tricuspid regurgitation present. There is no evidence of pulmonary hypertension. The right ventricular systolic pressure, as measured by Doppler, is 27.27mmHg. There is no pulmonic regurgitation present. The aortic root size is normal. There is no pericardial effusion. CONCLUSIONS -------- 1. The left ventricular size is normal. 2. The aortic root size is normal. 3. There is no pericardial effusion. 4. Left ventricular wall thickness is normal. 5. Overall left ventricular systolic function is normal with, an EF between 55 - 60 %. 6. The aortic valve is trileaflet, and appears structurally normal. No aortic stenosis or regurgitation. 7. Mild mitral regurgitation is present. 8. Mild tricuspid regurgitation present. 9. There is no evidence of pulmonary hypertension. 10. The right ventricular systolic pressure, as measured by Doppler, is 27.27mmHg. 11. There is no pulmonic regurgitation present. COST CONTROL ANALYST: Annette Rudolph RDCS
[2017-02-03] MEDS: HEPARIN SODIUM,PORCINE/D5W PMX 25,000 UNIT in DEXTROSE/WATER 1 500ML.BAG IV SCH (16:13)
[2017-02-03] MEDS: VERAPAMIL 40 MG TAB PO SCH (21:13)
[2017-02-03] MEDS ORDERED: MEXILETINE 150 MG CAP PO STA (21:50)
[2017-02-03] MEDS: NICOTINE 14MG/24HR PATCH TRANSDERM SCH (21:59)
[2017-02-04] MEDS: ACETAMINOPHEN TAB 325 MG TAB PO PRN (03:01)
[2017-02-04] MEDS: MEXILETINE 150 MG CAP PO SCH ×3 (06:21→21:41)
[2017-02-04 06:56] LABS: Mean Platelet Volume 6.7
[2017-02-04] MEDS: NICOTINE 14MG/24HR PATCH TRANSDERM SCH (08:33)
[2017-02-04] MEDS: VERAPAMIL 40 MG TAB PO SCH ×3 (08:33→21:41)
--- NOTE | 2017-02-04 11:48 | P.PN ---
Subjective Patient is a very pleasant 45-year-old gentleman was admitted second time for cardiac arrhythmia, suspicion of went to tachycardia. Patient is undergoing stress test and patient was started on verapamil by cardiology and EP next Patient denied any chest pain, nausea, vomiting, lightheadedness, tachycardia palpitations, fever, chills Objective - Vital Signs Vital signs: Vital Signs Temp 97 F L 02/04/17 08:33 Pulse 78 02/04/17 08:33 Resp 18 02/04/17 08:33 BP 116/72 02/04/17 08:33 Pulse Ox 95 02/04/17 08:33 Intake & Output 02/03/17 02/04/17 02/04/17 18:59 06:59 18:59 Intake Total 712.808 118 Balance 712.808 118 Weight 101 kg 103.4 kg Intake: Intake, IV Titration 272.808 Amount Heparin Sodium,Porcine/ 272.808 D5w Pmx 25,000 unit In Dextrose/Water 1 500ml. bag @ 10 UNITS/KG/HR 19. 95 mls/hr IV .Q24H [facility] Rx #:[id number] Oral 440 118 Other: Voiding Method Toilet Toilet Toilet # Voids 2 1 1 - Exam PHYSICAL EXAMINATION: GENERAL: The patient is alert and oriented x3, not in any acute distress. Well developed, well nourished. HEENT: Pupils are round and equally reacting to light. EOMI. No scleral icterus. No conjunctival pallor. Normocephalic, atraumatic. No pharyngeal erythema. No thyromegaly. CARDIOVASCULAR: S1 and S2 present. No murmurs, rubs, or gallops. PULMONARY: Chest is clear to auscultation, no wheezing or crackles. ABDOMEN: Soft, nontender, nondistended, normoactive bowel sounds. No palpable organomegaly. MUSCULOSKELETAL: No joint swelling or deformity. EXTREMITIES: No cyanosis, clubbing, or pedal edema. NEUROLOGICAL: Gross neurological examination did not reveal any focal deficits. SKIN: No rashes. - Labs CBC & Chem 7: 02/04/17 06:42 02/02/17 19:17 Labs: Abnormal Lab Results - Last 24 Hours (Table) 02/03/17 Range/Units 11:57 APTT 33.0 H (22.0-30.0) sec Assessment and Plan Plan: #1 palpitations, chest pressure and shortness of breath: All the symptoms resolved probably due to some can of cardiac arrhythmia , plan is stresses tomorrow further evaluation and management as per EP after the stress test #2 mildly elevated cardiac enzymes that his troponin secondary to tachycardia and arrhythmia. Does not appear to have non-ST elevation microinfarction #3 nicotine abuse history: Counseling was provided.
--- NOTE | 2017-02-04 14:58 | P.PN ---
Subjective Principal diagnosis: Heart racing and fluttering This is a 46-year-old gentleman admitted to the hospital with symptoms of heart racing and fluttering with associated tiredness and fatigue. Troponins abnormal. Patient did present to the hospital in December of this year with chest discomfort, he ruled in for non-Q-wave myocardial infarction. Underwent a cardiac catheterization at that time which revealed normal coronary arteries. He also had an echo performed which revealed normal left ventricular systolic function. On that admission patient also was noted to have nonsustained ventricular tachycardia. For this reason Dr. Acevedo was consulted on this admission. Patient was seen in consultation by Dr. Acevedo and initiated on mexiletine as well as verapamil. He will be scheduled tomorrow to undergo a regular stress test which will also be performed by Dr. Acevedo. Patient feels well overall, no complaints. Echocardiogram with Doppler study performed this admission revealed an ejection fraction of 55-60%. Objective - Vital Signs Vital signs: Vital Signs Temp 97 F L 02/04/17 11:30 Pulse 72 02/04/17 11:30 Resp 18 02/04/17 11:30 BP 127/87 02/04/17 11:30 Pulse Ox 98 02/04/17 11:30 Intake & Output 02/03/17 02/04/17 02/04/17 18:59 06:59 18:59 Intake Total 712.808 298 Balance 712.808 298 Weight 101 kg 103.4 kg Intake: Intake, IV Titration 272.808 Amount Heparin Sodium,Porcine/ 272.808 D5w Pmx 25,000 unit In Dextrose/Water 1 500ml. bag @ 10 UNITS/KG/HR 19. 95 mls/hr IV .Q24H [facility] Rx #:[id number] Oral 440 298 Other: Voiding Method Toilet Toilet Toilet # Voids 2 1 1 - Exam PHYSICAL EXAMINATION: HEENT: [Head is atraumatic, normocephalic. Pupils equal, round. Neck is supple. There is no elevated jugular venous pressure.] HEART EXAMINATION: [Heart S1, S2 normal. No murmur or gallop heard.] CHEST EXAMINATION:[ Lungs are clear to auscultation and precussion. No chest wall tenderness is noted on palpation or with deep breathing.] ABDOMEN: [ Soft, nontender. Bowel sounds are heard. No organomegaly noted]. EXTREMITIES:[ 2+ peripheral pulses with no evidence of peripheral edema and no calf tenderness noted]. NEUROLOGIC [patient is awake, alert and oriented -3.] . - Labs CBC & Chem 7: 02/04/17 06:42 02/02/17 19:17 Assessment and Plan (1) Nicotine dependence Status: Acute (2) NSVT (nonsustained ventricular tachycardia) Status: Acute (3) Chest pain Status: Acute (4) Heart palpitations Status: Acute Plan: From Cardiology's perspective we will continue the mexiletine along with the calcium channel huber. Patient will be scheduled to undergo a regular stress test tomorrow. DNP note has been reviewed, I agree with a documented findings and plan of care. Patient was seen and examined.
[2017-02-05 05:36] VITALS: RESP 16
[2017-02-05] MEDS: VERAPAMIL 40 MG TAB PO SCH (05:53)
[2017-02-05] MEDS: MEXILETINE 150 MG CAP PO SCH (05:53)
[2017-02-05 06:34] LABS: Mean Platelet Volume 6.8
[2017-02-05 08:05] VITALS: TEMP 97
[2017-02-05] MEDS: NICOTINE 14MG/24HR PATCH TRANSDERM SCH (10:19)
--- NOTE | 2017-02-05 10:58 | EST ---
EXERCISE STRESS DATE OF SERVICE: 02/05/2017 AGE: 46 SEX: Male HT: 77 WT: 227 PROTOCOL: Dany STAGE: III DURATION OF EXERCISE: 9 minutes HEART RATE REST: 97 BLOOD PRESSURE REST: 134/90 MAXIMUM HEART RATE ACHIEVED: 178 MAXIMUM BLOOD PRESSURE: 182/88 85% MPHR: 150 100% MPHR: 176 METS: 11.8 INDICATIONS: V-tach CLINICAL INFORMATION: A 46-year-old male patient presenting with palpitations and weakness and has documented nonsustained ventricular tachycardia. Ejection fraction low normal. Coronary arteries normal. Intolerant of very low dose of beta blockers. I started him on verapamil 40 mg 3 times a day as well as mexiletine 150 mg 3 times a day. I am considering possible myocarditis as the cause of recent onset of ventricular tachycardia. He was brought in for a stress test. Baseline heart rate 97 beats per minute. Baseline blood pressure 134/90 mmHg. Patient exercised on a Dany protocol for 9 minutes. He was short of breath with the exercise. He does smoke. Blood pressure response was normal. The baseline 12-lead ECG shows normal sinus rhythm with normal cardiac intervals, normal ST segments. There was no evidence for ischemia. No exercise-induced arrhythmias noted. No PVCs noted with exercise. During at recovery, no PVCs or ventricular tachycardia noted. IMPRESSION: No exercise induced ventricular tachycardia. PLAN: 1. Continue verapamil 40 mg 2 to 3 times a day and mexiletine 150 mg 2 to 3 times a day depending on tolerance. 2. Cardiac MRI will be scheduled to look for any focus of chronic myocarditis especially in the left ventricle. His VT is originating in the left ventricle. 3. Following that once I reviewed cardiac MRI, I will also proceed with an EP study and possibly VT ablation. 4. I did discuss the mid myocardial scars and epicardial scars and the technical issues regarding endocardial mapping and ablation. He will follow up with Dr. Alan in early February. He already has an appointment. I will see him after the cardiac MRI. MMODL / IJN: [id number] /
--- NOTE | 2017-02-05 11:37 | P.DS ---
Providers Date of admission: 02/02/17 21:16 Attending physician: Shanell Roldan Consults: 02/02/17 21:16 Consult Physician Urgent Consulting Provider: Duy Alan Consult Reason/Comments: cp Do you want consulting provider notified?: Yes 02/03/17 08:54 Consult Physician Routine Consulting Provider: Scotty Acevedo Consult Reason/Comments: EPS Do you want consulting provider notified?: Already Contacted [facility] Course: Patient is a very pleasant 45-year-old gentleman was admitted second time for cardiac arrhythmia, suspicion of went to tachycardia. Patient is undergoing stress test and patient was started on verapamil by cardiology and EP next 02/05/2017 Patient doesn't have any symptoms no overnight events patient is being discharged on verapamil and mexiletine and patient will follow-up with Dr. Joshi as an outpatient for EP study. Patient underwent stress test today no significant abnormality was appreciated. PHYSICAL EXAMINATION: GENERAL: The patient is alert and oriented x3, not in any acute distress. Well developed, well nourished. HEENT: Pupils are round and equally reacting to light. EOMI. No scleral icterus. No conjunctival pallor. Normocephalic, atraumatic. No pharyngeal erythema. No thyromegaly. CARDIOVASCULAR: S1 and S2 present. No murmurs, rubs, or gallops. PULMONARY: Chest is clear to auscultation, no wheezing or crackles. ABDOMEN: Soft, nontender, nondistended, normoactive bowel sounds. No palpable organomegaly. MUSCULOSKELETAL: No joint swelling or deformity. EXTREMITIES: No cyanosis, clubbing, or pedal edema. NEUROLOGICAL: Gross neurological examination did not reveal any focal deficits. SKIN: No rashes. #1 palpitations, chest pressure and shortness of breath: All the symptoms resolved probably due to some can of cardiac arrhythmia , #2 mildly elevated cardiac enzymes that his troponin secondary to tachycardia and arrhythmia. Does not appear to have non-ST elevation myocardial infarction #3 nicotine abuse history: Counseling was provided. Patient Condition at Discharge: Fair Plan - Discharge Summary New Discharge Prescriptions: Discontinued Metoprolol Tartrate [Lopressor] 25 mg PO DAILY No Action Aspirin 81 mg PO DAILY Discharge Medication List Aspirin 81 mg PO DAILY 12/26/16 [Rx] Follow up Appointment(s)/Referral(s): Fortino Iglesias MD [STAFF PHYSICIAN] - 1 Week Discharge Disposition: HOME SELF-CARE
[2017-02-05 12:32] VITALS: BP 113/70; PULSE 72
--- NOTE | 2017-02-05 14:42 | P.PN ---
Subjective This is a pleasant 46-year-old gentleman with history of prior admission with chest discomfort, found to be positive for non-ST elevated SC. He underwent cardiac catheterization at that time which revealed normal coronary arteries. He was also found to have episodes of nonsustained ventricular tachycardia. He presents this admission with complaints of palpitations, tiredness and fatigue with dizziness, troponins were abnormal. Patient underwent exercise stress testing this morning which was overseen by Dr. Acevedo. He did not develop any exercise-induced arrhythmias. He had no episodes of ventricular tachycardia in the recovery period and up to 2 hours post exercise. Examination this morning, patient is feeling well, no recurrence of symptoms. Objective - Vital Signs Vital signs: Vital Signs Temp 97 F L 02/05/17 08:00 Pulse 72 02/05/17 12:00 Resp 16 02/05/17 08:00 BP 113/70 02/05/17 12:00 Pulse Ox 95 02/05/17 08:00 Intake & Output 02/04/17 02/05/17 02/05/17 18:59 06:59 18:59 Intake Total 1138 0 Balance 1138 0 Weight 100.7 kg Intake: Oral 1138 0 Other: Voiding Method Toilet Toilet # Voids 1 1 1 - Exam PHYSICAL EXAMINATION: HEENT: Head is atraumatic, normocephalic. Pupils equal, round. Neck is supple. There is no elevated jugular venous pressure. HEART EXAMINATION: Heart sounds regular, S1 and S2 normal. No murmur or gallop heard. CHEST EXAMINATION: Lungs are clear to auscultation and precussion. No chest wall tenderness is noted on palpation or with deep breathing. ABDOMEN: Soft, nontender. Bowel sounds are heard. No organomegaly noted. EXTREMITIES: 2+ peripheral pulses with no evidence of peripheral edema and no calf tenderness noted. NEUROLOGIC patient is awake, alert and oriented x3. . - Labs CBC & Chem 7: 02/05/17 05:38 02/02/17 19:17 Assessment and Plan Plan: Assessment and plan #1 symptoms of palpitations and dizziness #2 nonsustained ventricular tachycardia #3 chest pain #4 nicotine dependence From game operator perspective, patient may be discharged home on mexiletine and verapamil. He will follow-up with Dr. Felix in the office on February 25. He will be scheduled for a cardiac MR and will follow up with Dr. Acevedo thereafter. Patient will likely be scheduled at that time to undergo EP study. DELIVERY AIDE note has been reviewed, I agree with a documented findings and plan of care. Patient was seen and examined.
== END 2017-02-05 12:47 | disposition home or self-care (01) | DRG 310 ==
LOC: EC 18:32 → 6SEL 21:16
PROVIDERS: ADMIT Internal Medicine; ATTEND Internal Medicine
DX: I47.2 Ventricular tachycardia (principal); F17.200 Nicotine dependence, unspecified, uncomplicated; I25.2 Old myocardial infarction; Z79.82 Long term (current) use of aspirin; Z79.899 Other long term (current) drug therapy; Z88.1 Allergy status to other antibiotic agents; Z86.14 Personal history of Methicillin resistant Staphylococcus aureus infection
CPT/HCPCS: 36415; 71020; 80053; 82550; 82553; 83735; 83880; 84484; 85025; 85049; 85379; 85610; 85652; 85730; 86140; 93005; 93017; 93306; 96365; 96376; 99285

== ENCOUNTER 2017-08-09 11:43 | Day surgery (SDC) | payer BC ==
[2017-08-06 09:35] VITALS: BMI 27.8
[~2017-08-09 11:43] MED LIST: SODIUM CHLORIDE 0.9% 1,000 ML IV SCH
[2017-08-09 12:14] VITALS: RESP 20; TEMP 97.9
[2017-08-09] MEDS ORDERED: SODIUM CHLORIDE 0.9% 500 ML IV ONE (14:22)
[2017-08-09] MEDS: CLINDAMYCIN 900 MG in DEXTROSE 5% IN WATER 50 ML IVPB ONE ×4 (14:26→14:28)
[2017-08-09] MEDS ORDERED: LIDOCAINE 2% INJ 20 MG/ML SQ ONE (14:27)
--- NOTE | 2017-08-09 14:40 | P.PCN ---
Preoperative Diagnosis: Loop monitor implant Primary physicians: Dr. Butts Rod Welder: Dr. Felix Indication: Recurrent dizziness, presyncope and palpitations Patient was brought to the EP lab in a fasting state. Written informed consent was obtained prior to the procedure. The left pectoral area was prepped and draped per protocol. Intravenous antibiotic was administered preoperatively. A subcutaneous Loop monitor was implanted successfully and the wound was closed per protocol. The device was programmed to detect significant rosmery- arrhythmic and tachy-arrhythmic events, per protocol. Device and programming details: Sick with protocol Condition: stable Disposition: same day
--- NOTE | 2017-08-09 14:41 | P.PCN ---
Preoperative Diagnosis: Patient underwent EP procedure under conscious sedation/moderate sedation, monitoring of the level of consciousness and physiologic parameters including but not limited to vital signs and oxygenation. Patient tolerated the procedure well without any acute complications. Start time: 2:26 PM Stop time: 2:37 PM Disposition: same day
[2017-08-09 15:30] VITALS: BP 131/93
== END 2017-08-09 15:31 | disposition home or self-care (01) ==
LOC: CATHEP 11:43
PROVIDERS: ATTEND Internal Medicine Clinical Cardiac Electrophysiology
DX: R42 Dizziness and giddiness (principal); R55 Syncope and collapse; R00.2 Palpitations; I47.2 Ventricular tachycardia; E78.1 Pure hyperglyceridemia; I51.4 Myocarditis, unspecified; Z79.899 Other long term (current) drug therapy; Z88.1 Allergy status to other antibiotic agents; Z87.891 Personal history of nicotine dependence
CPT/HCPCS: 33282; C1764; J2001

== ENCOUNTER 2023-01-05 10:45 | Emergency (ER) | payer BC ==
--- NOTE | 2023-01-05 11:14 | ED ---
Skin/Abscess/FB HPI - General Chief complaint: Skin/Abscess/Foreign Body Stated complaint: rash on wrist Time Seen by Provider: 01/05/23 10:53 Source: patient, RN notes reviewed Mode of arrival: ambulatory Limitations: no limitations - History of Present Illness Initial comments: This is a 35-year-old male who presents to the emergency department for a rash to the left wrist. States that this started a month ago. He was given a prescription for triamcinolone and ketoconazole cream. He has been applying these as instructed, but states that the rash continues to get worse. Denies any itching or pain, but states that his wrist feels stiff. States that he is very concerned because he works in a [employer] and is worried about having caught some sort of infection. Denies any history of similar rashes in the past. Denies any fevers, chills, sore throat, cough, dyspnea, chest pain, palpitations, abdominal pain, nausea, vomiting, diarrhea, back pain, or headaches. MD complaint: rash Onset/Timin -: month(s) - Related Data Home Medications Medication Instructions Recorded Confirmed Metoprolol Tartrate 25 mg PO DAILY 08/06/17 08/09/17 Mexiletine [Mexitil] 150 mg PO BID 08/06/17 08/09/17 Previous Rx's Medication Instructions Recorded Sulfamethox-Tmp 800-160Mg [Bactrim 1 tab PO Q12HR 7 Days #14 tab 01/05/23 DS 800-160 mg] predniSONE 50 mg PO DAILY 5 Days #5 tab 01/05/23 Allergies Allergy/AdvReac Type Severity Reaction Status Date / Time ceftriaxone [From Rocephin] Allergy Rash/Hives Verified 01/05/23 10:51 Review of Systems ROS Statement: Those systems with pertinent positive or pertinent negative responses have been documented in the HPI. ROS Other: All systems not noted in ROS Statement are negative. Past Medical History Past Medical History: CVA/TIA Additional Past Medical History / Comment(s): TIA 2012/no residual, SOB @times, see Dr Acevedo [facility], endocarditits. History of Any Multi-Drug Resistant Organisms: MRSA Date of last positivie culture/infection: 2012 MDRO Source:: right leg Past Surgical History: Adenoidectomy, Heart Catheterization, Orthopedic Surgery Additional Past Surgical History / Comment(s): Right ankle Past Anesthesia/Blood Transfusion Reactions: No Reported Reaction Past Psychological History: No Psychological Hx Reported Smoking Status: Never smoker Past Alcohol Use History: Rare Past Drug Use History: None Reported - Past Family History Mother History Unknown: Yes General Exam Limitations: no limitations General appearance: alert, in no apparent distress Head exam: Present: atraumatic, normocephalic, normal inspection Respiratory exam: Present: normal lung sounds bilaterally. Absent: respiratory distress, wheezes, rales, rhonchi, stridor Cardiovascular Exam: Present: regular rate, normal rhythm, normal heart sounds. Absent: systolic murmur, diastolic murmur, rubs, gallop, clicks Neurological exam: Present: alert, oriented X3, CN II-XII intact Psychiatric exam: Present: normal affect, normal mood Skin exam: Present: other (Approximately 4-5 cm area of erythema, scaling, and pustules to the dorsal aspect of the left wrist. No tenderness.) Course Vital Signs 01/05/23 01/05/23 10:47 12:50 Temperature 98.5 F 97.8 F Pulse Rate 94 79 Respiratory 20 16 Rate Blood Pressure 123/88 118/81 O2 Sat by Pulse 99 96 Oximetry Medical Decision Making - Medical Decision Making This is a 52-year-old male who presents to the emergency department for a rash to the left wrist. Was pt. sent in by a medical professional or institution? @ -No Did you speak to anyone other than the patient for history? @ -No Did you review nursing and triage notes? @ -Yes, and I agree, it is accurate with regards to the patient's symptoms. Were old charts reviewed? @ -No Differential Diagnosis? @ -Differential Rash: Roseola, measles, Lyme disease, erythema multiforme, cellulitis, toxic shock syndrome, Garrick Ruiz syndrome, Kawasaki disease, devon mountain spotted fever, contact dermatitis, allergic dermatitis, measles, mumps, rubella, varicella, meningococcal disease, drug reaction, coxsackievirus, This is not meant to be an all-inclusive list. EKG interpreted by me (3pts min.)? @ -Not obtained X-rays interpreted by me (1pt min.)? @ -X-ray of the left wrist obtained. My interpretation identifies no evidence of soft tissue swelling or subcutaneous gas formation. CT interpreted by me (1pt min.)? @ -Not obtained U/S interpreted by me (1pt. min.)? @ -Not obtained What testing was considered but not performed? (CT, X-rays, U/S, labs)? Why? @ -None What meds were considered but not given? Why? @ -None Did you discuss the management of the patient with other professionals? @ -No Did you reconcile home meds? @ -No Was smoking cessation discussed for >3mins.? @ -No Was critical care preformed (if so, how long)? @ -No Were there social determinants of health that impacted care today? How? (Homelessness, low income, unemployed, alcoholism, drug addiction, transportation, low edu. Level, literacy, decrease access to med. care, [facility], rehab)? @ -No Was there de-escalation of care discussed even if they declined? (Discuss DNR or withdrawal of care, Hospice)? @ -No What co-morbidities impacted this encounter? (DM, HTN, Smoking, COPD, CAD, Cancer, CVA, Hep., AIDS, mental health diagnosis, sleep apnea, morbid obesity)? @ -None Was patient admitted / discharged? @ -Discharged. Lab work obtained and found to be nonactionable. X-ray of the left wrist obtained revealing no acute process. The presentation is more so consistent with a contact dermatitis. However, given that there are also pustules, there is also concern for infection. We'll treat patient with both a course of antibiotics and steroids. Prescription for Bactrim and prednisone provided with dosing instructions reviewed. Advised ibuprofen and Tylenol as needed if he develops any pain. Also advised close follow up with his PCP.. Undiagnosed new problem with uncertain prognosis? @ -None Drug Therapy requiring intensive monitoring for toxicity (Heparin, Nitro, Insulin, Cardizem)? @ -None Were any procedures done? @ -None Diagnosis/symptom? @ -Cellulitis, contact dermatitis Acute, or Chronic, or Acute on Chronic? @ -Acute Uncomplicated (without systemic symptoms) or Complicated (systemic symptoms)? @ -Uncomplicated Side effects of treatment? @ -None Exacerbation, Progression, or Severe Exacerbation] @ -Not applicable Poses a threat to life or bodily function? @ -No Return precautions reviewed in depth, the patient is instructed to return to the emergency department with any new, worsening, or concerning symptoms. Patient verbalized understanding. This case was discussed in detail with the attending ED physician, Dr. Joyce. Presentation, findings, and treatment plan discussed in detail as well. - Lab Data Result diagrams: 01/05/23 11:18 01/05/23 11:18 Lab Results 01/05/23 01/05/23 01/05/23 Range/Units 11:18 11:18 11:18 WBC 5.4 (3.8-10.6) k/uL RBC 4.36 (4.30-5.90) m/uL Hgb 14.5 (13.0-17.5) gm/dL Hct 41.6 (39.0-53.0) % MCV 95.5 (80.0-100.0) fL MCH 33.2 (25.0-35.0) pg MCHC 34.8 (31.0-37.0) g/dL RDW 12.0 (11.5-15.5) % Plt Count 190 (150-450) k/uL MPV 7.0 Neutrophils % 59 % Lymphocytes % 29 % Monocytes % 8 % Eosinophils % 2 % Basophils % 0 % Neutrophils # 3.2 (1.3-7.7) k/uL Lymphocytes # 1.6 (1.0-4.8) k/uL Monocytes # 0.5 (0-1.0) k/uL Eosinophils # 0.1 (0-0.7) k/uL Basophils # 0.0 (0-0.2) k/uL Sodium 139 (137-145) mmol/L Potassium 4.4 (3.5-5.1) mmol/L Chloride 105 (98-107) mmol/L Carbon Dioxide 24 (22-30) mmol/L Anion Gap 10 mmol/L BUN 19 (9-20) mg/dL Creatinine 0.99 (0.66-1.25) mg/dL Est GFR (CKD-EPI)AfAm >90 (>60 ml/min/1.73 sqM) Est GFR (CKD-EPI)NonAf 88 (>60 ml/min/1.73 sqM) Glucose 91 (74-99) mg/dL Plasma Lactic Acid Daniel 0.7 (0.7-2.0) mmol/L Calcium 9.5 (8.4-10.2) mg/dL Total Bilirubin 0.6 (0.2-1.3) mg/dL AST 32 (17-59) U/L ALT 28 (4-49) U/L Alkaline Phosphatase 56 (38-126) U/L C-Reactive Protein <0.5 (<1.0) mg/dL Total Protein 7.4 (6.3-8.2) g/dL Albumin 4.4 (3.5-5.0) g/dL - Radiology Data Radiology results: report reviewed, image reviewed Disposition Clinical Impression: Contact dermatitis, Cellulitis Disposition: HOME SELF-CARE Instructions (If sedation given, give patient instructions): Contact Dermatitis (ED), Cellulitis (ED) Additional Instructions: Return to the emergency department with any new, worsening, or concerning symptoms. Take the antibiotic as prescribed for 7 days. Take the prednisone daily for 5 days. You may continue using the provided creams as well. Alternate with ibuprofen and Tylenol as needed for pain relief. Follow up with your primary care provider in 1-2 days. Prescriptions: Sulfamethox-Tmp 800-160Mg [Bactrim DS 800-160 mg] 1 tab PO Q12HR 7 Days #14 tab predniSONE 50 mg PO DAILY 5 Days #5 tab Is patient prescribed a controlled substance at d/c from ED?: No Referrals: Wilner Nieto MD [Primary Care Provider] - 1-2 days
[2023-01-05 11:36] LABS: Basophils % (A) 0 %; Eosinophils # (A) 0.1 k/uL (0-0.7); Eosinophils % (A) 2 %; HCT 41.6 % (39.0-53.0); HGB 14.5 gm/dL (13.0-17.5); Lymphocytes # (A) 1.6 k/uL (1.0-4.8); Lymphocytes % (A) 29 %; MCH 33.2 pg (25.0-35.0); MCHC 34.8 g/dL (31.0-37.0); MCV 95.5 fL (80.0-100.0); Monocytes # (A) 0.5 k/uL (0-1.0); Monocytes % (A) 8 %; Neutrophils # (A) 3.2 k/uL (1.3-7.7); Neutrophils % (A) 59 %; Platelet Count 190 k/uL (150-450); RBC 4.36 m/uL (4.30-5.90); WBC 5.4 k/uL (3.8-10.6)
[2023-01-05 11:49] LABS: ALT 28 U/L (4-49); AST 32 U/L (17-59); African American GFR (CKD) >90 (>60 ml/min/1.73 sqM); Albumin 4.4 g/dL (3.5-5.0); Alkaline Phosphatase 56 U/L (38-126); Anion Gap 10 mmol/L; Blood Urea Nitrogen 19 mg/dL (9-20); C Reactive Protein <0.5 mg/dL (<1.0); Calcium 9.5 mg/dL (8.4-10.2); Carbon Dioxide 24 mmol/L (22-30); Chloride 105 mmol/L (98-107); Glucose 91 mg/dL (74-99); Non-African American GFR(CKD) 88 (>60 ml/min/1.73 sqM); Potassium 4.4 mmol/L (3.5-5.1); Sodium 139 mmol/L (137-145); Total Bilirubin 0.6 mg/dL (0.2-1.3); Total Protein 7.4 g/dL (6.3-8.2)
--- NOTE | 2023-01-05 11:51 | XR ---
EXAMINATION TYPE: XR wrist complete LT DATE OF EXAM: 01/05/2023 CLINICAL HISTORY: pain TECHNIQUE: Frontal, lateral and oblique images of the left wrist are obtained. COMPARISON: None. FINDINGS: There is no acute fracture/dislocation evident. The joint spaces appear within normal brice its. The overlying soft tissue appears unremarkable. IMPRESSION: There is no acute fracture or dislocation seen. ICD 10 NO FRACTURE, INITIAL EVALUATION
[2023-01-05] MEDS ORDERED: IBUPROFEN 600 MG STARTER PACK 4 TAB BTL PO STA (12:13)
[2023-01-05] MEDS ORDERED: ACET/COD 300 MG/30 MG STARTER PACK 6 TAB BTL PO STA (12:13)
[2023-01-05 12:51] VITALS: BP 118/81; PULSE 79; RESP 16; TEMP 97.8
== END 2023-01-05 13:01 | disposition home or self-care (01) ==
LOC: EC 10:45
DX: L25.9 Unspecified contact dermatitis, unspecified cause (principal); R22.32 Localized swelling, mass and lump, left upper limb; Z86.73 Personal history of transient ischemic attack (TIA), and cerebral infarction without residual deficits; Z88.1 Allergy status to other antibiotic agents; Z79.899 Other long term (current) drug therapy
CPT/HCPCS: 36415; 80053; 83605; 85025; 86140; 99283